=== PATIENT | male | born 1945 | race Caucasian/White ===

== ENCOUNTER 2019-04-27 12:42 | Outpatient (CLI) | payer BC, MEDICARE ==
[2019-04-27 13:42] LABS: HGB - HEMOGLOBIN 13.8 g/dL (14.0-18.0); MEAN CORPUSCULAR HEMOGLOBIN 29.7 pg (27.0-31.0); MEAN CORPUSCULAR HGB CONC 32.6 g/dL (32.0-36.0); MEAN CORPUSCULAR VOLUME 91.2 fL (80.0-94.0); MEAN PLATELET VOLUME 9.3 fL (7.4-11.4); RED BLOOD COUNT 4.64 10^6/uL (4.70-6.10); RED CELL DISTRIBUTION WIDTH 12.5 % (12.0-15.0)
[2019-04-27 14:02] LABS: CALCIUM 8.9 mg/dL (8.5-10.3)
== END 2019-04-27 12:43 | disposition home or self-care (01) ==
LOC: LAB 12:42
PROVIDERS: ATTEND Urology
DX: Z01.818 Encounter for other preprocedural examination (principal)
CPT/HCPCS: 36415; 80048; 85027; 93005

== ENCOUNTER 2019-06-15 13:13 | Outpatient (CLI) | payer BC, MEDICARE ==
[2019-06-15 14:16] LABS: PSA TOTAL 6.03 ng/mL (0.000-2.000)
== END 2019-06-15 13:14 | disposition home or self-care (01) ==
LOC: LAB 13:13
PROVIDERS: ATTEND Urology
DX: C61 Malignant neoplasm of prostate (principal)
CPT/HCPCS: 36415; 84153; 84403

== ENCOUNTER 2019-07-19 10:03 | Day surgery (SDC) | payer BC, MEDICARE ==
--- NOTE | 2019-07-19 10:32 | ED Physician Documentation ---
PD HPI ABD PAIN - Stated complaint Stated Complaint: ABD PX - Chief complaint Chief Complaint: Abd Pain - History obtained from History obtained from: Patient - History of Present Illness Timing - onset: How many days ago (3) Timing - duration: Days (3) Timing - details: Gradual onset, Still present (He states he has a history of diverticulitis 3 or 4 times in the past treated with antibiotics. He had not had prior surgery. He had onset of mid to left lower abdominal pain similar to prior diverticulitis 3 days ago and it has increased since then. He states is gotten worse than the other episodes he has had. He denies any nausea vomiting or diarrhea. He is not had any fevers. He was seen 2 months ago with laparoscopic surgery and prostatectomy and lymph node dissection for prostate cancer. This has been well healing without any infection or problems. He did get a Lupron shots. Otherwise no current chemotherapy. He is to get radiation therapy in the near future.) Quality: Cramping, Aching, Pain Review of Systems Constitutional: reports: Fatigue. denies: Fever, Chills, Myalgias Nose: denies: Rhinorrhea / runny nose, Congestion Throat: denies: Sore throat Respiratory: denies: Cough GI: reports: Abdominal Pain. denies: Vomiting, Diarrhea, Bloody / black stool : denies: Dysuria, Frequency PD PAST MEDICAL HISTORY - Past Medical History Cardiovascular: High cholesterol : Other (prostate cancer with spread to lymph nodes. ) Psych: Depression - Past Surgical History Past Surgical History: No - Present Medications Home Medications: Ambulatory Orders Medication Instructions Recorded Confirmed Atorvastatin Calcium [Lipitor] 20 mg PO DAILY 01/30/14 07/19/19 Citalopram [CeleXA] 10 mg PO ONCE 07/19/19 07/19/19 Levofloxacin [Levaquin] 500 mg PO DAILY #10 tablet 07/19/19 Melatonin 10 mg PO DAILY PM 07/19/19 07/19/19 Ondansetron Odt [Zofran] 4 mg TL Q6H PRN #10 tablet 07/19/19 diphenhydrAMINE [Benadryl] 25 mg PO ONCE 07/19/19 07/19/19 oxyCODONE [Roxicodone] 5 mg PO Q4HR PRN #20 tablet 07/19/19 - Allergies Allergies/Adverse Reactions: Allergies Allergy/AdvReac Type Severity Reaction Status Date / Time No Known Drug Allergies Allergy Verified 07/19/19 14:17 - Social History Does the pt smoke?: No Smoking Status: Never smoker Does the pt drink ETOH?: No PD ED PE NORMAL - Vitals Vital signs reviewed: Yes - General General: Alert and oriented X 3, No acute distress, Well developed/nourished - HEENT HEENT: Moist mucous membranes, Pharynx benign - Neck Neck: Supple, no meningeal sign, No adenopathy - Cardiac Cardiac: RRR, No murmur - Respiratory Respiratory: Clear bilaterally - Abdomen Abdomen: Normal bowel sounds, Soft, Non distended, No organomegaly, Other ([place] with some local guarding in the left lower quadrant and left periumbilical area. There is no tenderness to the right to the umbilicus nor the right lower quadrant. There is no percussion or rebound tenderness. Bowel sounds are present and slightly hypoactive. Prior laparoscopic scars are healing without any signs of infection.) - Back Back: No CVA TTP - Derm Derm: Normal color, Warm and dry - Neuro Neuro: Alert and oriented X 3, No motor deficit, Normal speech Results - Vitals Vitals: Vital Signs - 24 hr 07/19/19 07/19/19 07/19/19 10:08 12:04 13:54 Temperature 36.8 C 37.0 C Heart Rate 64 63 64 Respiratory 18 15 16 Rate Blood Pressure 178/79 H 165/80 H 178/102 H O2 Saturation 98 97 97 07/19/19 07/19/19 07/19/19 15:55 16:00 16:05 Temperature 36.2 C L 36.4 C L 36.4 C L Heart Rate 75 80 78 Respiratory 14 16 16 Rate Blood Pressure 155/81 H 132/78 H 133/78 H O2 Saturation 77 L 98 98 07/19/19 07/19/19 07/19/19 16:10 16:15 16:19 Temperature 36.4 C L 36.4 C L Heart Rate 83 83 84 Respiratory 16 16 16 Rate Blood Pressure 130/81 H 132/78 H 131/80 H O2 Saturation 98 99 97 07/19/19 07/19/19 07/19/19 16:21 16:54 17:25 Temperature 36.4 C L 36.5 C 36.6 C Heart Rate 79 81 62 Respiratory 14 16 16 Rate Blood Pressure 132/84 H 139/78 H 132/86 H O2 Saturation 99 97 96 Oxygen O2 Source Room air - Labs Labs: Laboratory Tests 07/19/19 07/19/19 07/19/19 10:40 10:40 10:40 WBC 5.4 RBC 4.94 Hgb 14.4 Hct 43.9 MCV 88.9 MCH 29.1 MCHC 32.8 RDW 12.6 Plt Count 216 MPV 8.9 Neut # (Auto) 3.7 Lymph # (Auto) 0.8 L [place] # (Auto) 0.5 Eos # (Auto) 0.3 Baso # (Auto) 0.0 Absolute Nucleated RBC 0.00 Nucleated RBC % 0.0 Sodium 139 Potassium 4.0 Chloride 103 Carbon Dioxide 27 Anion Gap 9.0 BUN 17 Creatinine 1.0 Estimated GFR (MDRD) 73 L Glucose 161 H Calcium 8.8 Magnesium 1.9 Total Bilirubin 0.7 AST 21 ALT 30 Alkaline Phosphatase 70 Total Protein 7.5 Albumin 3.8 Globulin 3.7 Albumin/Globulin Ratio 1.0 Lipase 64 H Urine Color Urine Clarity Urine pH Ur Specific [place] Urine Protein Urine Glucose (UA) Urine Ketones Urine Occult Blood Urine Nitrite Urine Bilirubin Urine Urobilinogen Ur Leukocyte Esterase Ur Microscopic Review Urine Culture Comments 07/19/19 11:52 WBC RBC Hgb Hct MCV MCH MCHC RDW Plt Count MPV Neut # (Auto) Lymph # (Auto) [place] # (Auto) Eos # (Auto) Baso # (Auto) Absolute Nucleated RBC Nucleated RBC % Sodium Potassium Chloride Carbon Dioxide Anion Gap BUN Creatinine Estimated GFR (MDRD) Glucose Calcium Magnesium Total Bilirubin AST ALT Alkaline Phosphatase Total Protein Albumin Globulin Albumin/Globulin Ratio Lipase Urine Color YELLOW Urine Clarity CLEAR Urine pH 8.0 H Ur Specific [place] 1.010 Urine Protein NEGATIVE Urine Glucose (UA) NEGATIVE Urine Ketones NEGATIVE Urine Occult Blood NEGATIVE Urine Nitrite NEGATIVE Urine Bilirubin NEGATIVE Urine Urobilinogen 0.2 (NORMAL) Ur Leukocyte Esterase NEGATIVE Ur Microscopic Review NOT INDICATED Urine Culture Comments NOT INDICATED - Rads (name of study) abd CT Radiology: Prelim report reviewed, Discussed with rads (Diverticula are seen in the descending colon but no areas of diverticulitis. There is inflammation of the appendix at 1.7 cm with surrounding fat stranding concerning for acute appendicitis.), See rad report PD MEDICAL DECISION MAKING - ED course Complexity details: reviewed results (CT shows no diverticulitis but there is acute appendicitis per radiology.), re-evaluated patient, considered differential (Symptoms consistent with prior diverticulitis. However it is worse than other episodes he has had. Will get CT scan to confirm the diagnosis and evaluate for complications such as perforation or abscess.), d/w patient, d/w business solutions consultant ([place], surgery) Departure - Departure Disposition: ED Transfer to [facility] Clinical Impression: Acute appendicitis Qualifiers: Acute appendicitis type: with localized peritonitis Appendicitis gangrene presence: without gangrene Appendicitis perforation presence: without perforation Appendicitis abscess presence: without abscess Qualified Code(s): K35.30 - Acute appendicitis with localized peritonitis, without perforation or gangrene Abdominal pain Qualifiers: Abdominal location: left lower quadrant Qualified Code(s): R10.32 - Left lower quadrant pain Discharge Date/Time: 07/19/19 13:28
[2019-07-19 10:46] LABS: BASOPHILS % (AUTO) 0.6 %; EOSINOPHILS # (AUTO) 0.3 10^3/uL (0.0-0.7); EOSINOPHILS % (AUTO) 5.5 %; HGB - HEMOGLOBIN 14.4 g/dL (14.0-18.0); LYMPHOCYTES # (AUTO) 0.8 10^3/uL (1.5-3.5); LYMPHOCYTES % (AUTO) 15.3 %; MEAN CORPUSCULAR HEMOGLOBIN 29.1 pg (27.0-31.0); MEAN CORPUSCULAR HGB CONC 32.8 g/dL (32.0-36.0); MEAN CORPUSCULAR VOLUME 88.9 fL (80.0-94.0); MEAN PLATELET VOLUME 8.9 fL (7.4-11.4); MONOCYTES # (AUTO) 0.5 10^3/uL (0.0-1.0); MONOCYTES % (AUTO) 9.4 %; NEUTROPHILS # (AUTO) 3.7 10^3/uL (1.5-6.6); NEUTROPHILS % (AUTO) 68.6 %; PLT - PLATELET COUNT 216 10^3/uL (130-450); RED BLOOD COUNT 4.94 10^6/uL (4.70-6.10); RED CELL DISTRIBUTION WIDTH 12.6 % (12.0-15.0); WHITE BLOOD COUNT 5.4 x10^3/uL (4.8-10.8)
[2019-07-19 11:01] LABS: ALBUMIN 3.8 g/dL (3.2-5.5); BILIRUBIN,TOTAL 0.7 mg/dL (0.2-1.0); CALCIUM 8.8 mg/dL (8.5-10.3); TOTAL PROTEIN 7.5 g/dL (6.7-8.2)
[2019-07-19] MEDS ORDERED: HYDROmorphone 1 MG/ML CARPUJECT IVP STA (11:03)
[2019-07-19] MEDS ORDERED: SODIUM CHLORIDE 0.9% 1,000 ML IV ONE (11:03)
[2019-07-19] MEDS ORDERED: KETOROLAC 15 MG/ML VIAL IVP STA (11:03)
[2019-07-19] MEDS ORDERED: ONDANSETRON 4 MG/2 ML VIAL IVP STA (11:03)
[2019-07-19] MEDS ORDERED: cefTRIAXone 1 GM VIAL IVP STA (11:03)
[2019-07-19] MEDS ORDERED: IOVERSOL 320 100 ML VIAL IVP ONE ×2 (11:06→15:17)
--- NOTE | 2019-07-19 11:59 | CT Report ---
Reason: LLQ abd pain 2 days; h/o diverticulitis Procedure Date: 07/19/2019 Accession Number: [id number] / [id number] Procedure: CT - Abdomen/Pelvis W CPT Code: Final Report FULL RESULT: EXAM: CT ABDOMEN AND PELVIS EXAM DATE: 07/19/2019 11:26 AM. CLINICAL HISTORY: LLQ abdominal pain 2 days; history of diverticulitis. COMPARISONS: None. TECHNIQUE: Routine helical CT imaging was performed through the abdomen and pelvis. IV contrast: OPTI 320 100 mL. Enteric contrast: No. Reconstructions: Coronal and sagittal. In accordance with CT protocol optimization, one or more of the following dose reduction techniques were utilized for this exam: automated exposure control, adjustment of mA and/or KV based on patient size, or use of iterative reconstructive technique. FINDINGS: Lung Bases: Unremarkable. Liver: Normal. No masses. Gallbladder/Bile Ducts: Unremarkable. Spleen: Normal. Pancreas: Normal. Adrenal Glands: Normal. Kidneys: Nonobstructing 4 mm right superior pole calculus is noted. Subcentimeter left renal hypodensity too small to characterize is also identified. No hydronephrosis. Peritoneal Cavity/Bowel: A blind-ending tubular structure extending from the cecal region demonstrates a maximal caliber of 1.7 cm with surrounding focal fat stranding, concerning for acute appendicitis or stump appendicitis. The ileocecal valve is no longer clearly delineated which is felt to be due to pericecal inflammation as the terminal ileum is seen just cranially to the blind-ending tubular structure. Expected stool burden is seen in the ascending and transverse colon with the distal descending and sigmoid colon essentially devoid of content. There is diverticulosis throughout the descending colon and sigmoid colon with short segmental thickening of the distal sigmoid colon without fluid collection or focally inflamed diverticulum identified. No free air, free fluid. Pelvic Organs: The patient is status post prostatectomy. Prominent lymph nodes are noted including a 1.4 cm right common iliac node which is potentially pathologic, image 36 series 5 and image 62 series 3. Fluid collections in the pelvis adjacent to the iliac vasculature demonstrate typical appearance of postsurgical seroma without enhancing wall with surrounding inflammatory changes and triangular margins along fascial planes. Vasculature: Ectatic iliac vasculature in the setting of mild to moderate atherosclerotic disease. Bones: No aggressive osseous lesion is detected. Other: None. IMPRESSION: Acute appendicitis without evidence of nearby abscess or perforation. Prominent lymph nodes including a right pelvic lymph node with apparent loss of architecture in the setting of prior prostatectomy. RADIA The call report notification system was initiated by Dr. Sebastien Martinez at 11:53 AM on 07/19/2019. The above call report findings were discussed with Michael Silverio by Dr. Sebastien Martinez at 11:58 AM on 07/19/2019.
[2019-07-19 12:03] LABS: BILIRUBIN,URINE NEGATIVE (NEGATIVE); GLUCOSE, URINE (UA) NEGATIVE (NEGATIVE); KETONES,URINE (UA) NEGATIVE (NEGATIVE); LEUKOCYTE ESTERASE, URINE NEGATIVE (NEGATIVE); NITRITE,URINE NEGATIVE (NEGATIVE); OCCULT BLOOD,URINE NEGATIVE (NEGATIVE); PROTEIN,URINE NEGATIVE (NEGATIVE); UROBILINOGEN,URINE 0.2 (NORMAL) E.U./dL (NORMAL)
[2019-07-19 12:04] LABS: CLARITY,URINE CLEAR (CLEAR)
[2019-07-19] MEDS ORDERED: PROPOFOL 200 MG/20 ML VIAL IVP ONE (13:09)
[2019-07-19] MEDS ORDERED: ROCURONIUM 50 MG/5 ML VIAL IVP ONE (13:09)
[2019-07-19] MEDS ORDERED: GLYCOPYRROLATE 1 MG/5 ML VIAL IVP ONE (13:09)
[2019-07-19] MEDS ORDERED: fentaNYL 100 MCG/2 ML VIAL IVP ONE (13:09)
[2019-07-19] MEDS ORDERED: LACTATED RINGERS 1,000 ML IV ONE ×2 (13:54→16:05)
--- NOTE | 2019-07-19 14:17 | ANESTHESIA ---
Pre-Anesthesia VS, & Labs - Diagnosis acute apendicitis - Procedure Lap appy Vital Signs: Temp Pulse Resp BP Pulse Ox 37.0 C 64 16 178/102 H 97 07/19/19 13:54 07/19/19 13:54 07/19/19 13:54 07/19/19 13:54 07/19/19 13:54 Height 5 ft 9 in Weight (kg) 220 kg Body Mass Index 32.5 - Lab Results Current Lab Results: Laboratory Tests 07/19/19 10:40: Magnesium 1.9 07/19/19 10:40: Sodium 139, Potassium 4.0, Chloride 103, Carbon Dioxide 27, Anion Gap 9.0, BUN 17, Creatinine 1.0, Estimated GFR (MDRD) 73 L, Glucose 161 H, Calcium 8.8, Total Bilirubin 0.7, AST 21, ALT 30, Alkaline Phosphatase 70, Total Protein 7.5, Albumin 3.8, Globulin 3.7, Albumin/Globulin Ratio 1.0, Lipase 64 H 07/19/19 10:40: WBC 5.4, RBC 4.94, Hgb 14.4, Hct 43.9, MCV 88.9, MCH 29.1, MCHC 32.8, RDW 12.6, Plt Count 216, MPV 8.9, Neut # (Auto) 3.7, Lymph # (Auto) 0.8 L, [place] # (Auto) 0.5, Eos # (Auto) 0.3, Baso # (Auto) 0.0, Absolute Nucleated RBC 0.00, Nucleated RBC % 0.0 Fish Bones: 07/19/19 10:40 07/19/19 10:40 Home Medications and Allergies Antidepressant 01/30/14 Atorvastatin Calcium [Lipitor] 20 mg PO DAILY 01/30/14 Cyclobenzaprine [Flexeril] 0 PRN 01/30/14 Allergies/Adverse Reactions: Allergies Allergy/AdvReac Type Severity Reaction Status Date / Time No Known Drug Allergies Allergy Verified 07/19/19 14:17 Anes History & Medical History - Anesthetic History Anesthesia Complications: reports: No previous complications Family history of Anesthesia Complications: Denies Family history of Malignant Hyperthermia: Denies - Medical History Cardiovascular: reports: High cholesterol, Other (denies HTN) Pulmonary: reports: Sleep apnea Gastrointestinal: reports: Diverticulitis, Other Urinary: reports: Incontinence, Nocturia, Other Neuro: reports: None Musculoskeletal: reports: None Endocrine/Autoimmune: reports: None, Other Blood Disorders: reports: None Skin: reports: None Smoking Status: Never smoker Psychosocial: reports: No issues indicated - Surgical History Urologic: Prostatic surgery (in may 2019) Exam General: Alert, Oriented x3, Cooperative, No acute distress Dental: WNL Mouth Openin Fingerbreadth Neck Mobility: Normal Mallampati classification: I Thyromental Distance: 4-6 cm Respiratory: Lungs clear, Normal breath sounds, No respiratory distress, No accessory muscle use Cardiovascular: Regular rate, Normal S1, Normal S2, No murmurs Abdomen: Normal bowel sounds, Soft, No tenderness, No hepatospenomegaly, No masses Extremities: No clubbing, No cyanosis, No edema, Normal pulses, No tenderness/swelling Neurological: Normal gait, Normal speech, Strength at 5/5 X4 ext, Normal tone, Sensation intact, Cranial nerves 3-12 NL, Reflexes 2+ Mental/Cognitive Status: Alert/Oriented X3, Normal for patient Cognitive Status: Within normal limits Plan Anesthesia Type: General Consent for Procedure(s) Verified and Reviewed: Yes Code Status: Attempt Resuscitation ASA classification: 2-Mild systemic disease Is this case an emergency?: No
[2019-07-19] MEDS ORDERED: BUPIVACAINE 0.5% PF 30 ML VIAL ONE (14:18)
[2019-07-19] MEDS ORDERED: LIDOCAINE MPF 1%-EPI 1:200000 30 ML VIAL ONE (14:18)
--- NOTE | 2019-07-19 14:41 | HISTORY & PHYSICAL EXAMINATION ---
HPI - Admitted From Admitted from: ED - History Obtained From Records Reviewed: Old records reviewed History obtained from: Patient, Family - History of Present Illness Severity at the worst: reports: Moderate Pain Quality: reports: Sharp, Aching, Throbbing Context-Pain started w/: reports: Rest Timing: reports: Gradual onset Improved with: reports: Rest Worsened by: reports: Exertion, Inspiration, Movement, Palpation Associated symptoms: reports: Other (recent Lupron shot) PMH/PSH - Past Medical History Cardiovascular: positive: High cholesterol, Other (denies HTN) Respiratory: positive: Sleep apnea Neuro: positive: None Endocrine/Autoimmune: positive: None, Other GI: positive: Diverticulitis, Other : positive: Incontinence, Nocturia, Other HEENT: positive: Chronic vision loss Psych: positive: Depression, Anxiety Musculoskeletal: positive: None Derm: positive: None MRSA Hx?: No Social & Family Hx - Social History Does the pt smoke?: No Smoking Status: Never smoker Does the pt drink ETOH?: No Substance Use and Type: Marijuana Meds/Allgy - Home Medications Home Medications: Ambulatory Orders Medication Instructions Recorded Confirmed Atorvastatin Calcium [Lipitor] 20 mg PO DAILY 01/30/14 07/19/19 Citalopram [CeleXA] 10 mg PO ONCE 07/19/19 07/19/19 Melatonin 10 mg PO DAILY PM 07/19/19 07/19/19 diphenhydrAMINE [Benadryl] 25 mg PO ONCE 07/19/19 07/19/19 - Allergies Allergies/Adverse Reactions: Allergies Allergy/AdvReac Type Severity Reaction Status Date / Time No Known Drug Allergies Allergy Verified 07/19/19 14:17 Review of Systems - Constitutional Constitutional: reports: Fatigue, Malaise, Weakness, Poor appetite. denies: Fever, Chills - Eyes Eyes: denies: Pain, Blurred vision - Ears, Nose & Throat Ears, Nose & Throat: denies: Tinnitus, Vertigo - Cardiovascular Cariovascular: denies: Irregular heart rate, Palpitations, Chest pain - Respiratory Respiratory: denies: Cough, Wheezing - Gastrointestinal Gastrointestinal: reports: Abdominal pain, Nausea, Poor appetite. denies: Abdom inal distention, Constipation, Diarrhea, Change in bowel habits, Vomiting - Genitourinary Genitourinary: denies: Dysuria, Frequency - Musculoskeletal Musculoskeletal: reports: Muscle pain, Back pain, Muscle aches - Integumentary Integumentary: denies: Rash - Neurological Neurological: denies: General weakness, Focal weakness - Psychiatric Psychiatric: denies: Depression - Endocrine Endocrine: denies: Polyuria, Polydypsia - Hematologic/Lymphatic Hematologic/Lymphatic: denies: Anemia, Bruising - All Other Systems All Other Systems: reports: Reviewed and negative Exam - Vital Signs Reviewed Vital Signs: Yes Vital Signs: Vital Signs x48h Temp Pulse Resp BP Pulse Ox 07/19/19 13:54 37.0 C 64 16 178/102 H 97 07/19/19 12:04 63 15 165/80 H 97 07/19/19 10:08 36.8 C 64 18 178/79 H 98 - Physical Exam General Appearance: positive: No acute distress, Alert Eyes Bilateral: positive: Normal inspection, PERRL, EOMI ENT: positive: ENT inspection nml, Pharynx nml, No signs of dehydration Neck: positive: Nml inspection, Thyroid nml, No JVD, Trachea midline. negative: Thyromegaly Respiratory: positive: Chest non-tender, No respiratory distress, Breath sounds nml Cardiovascular: positive: Regular rate & rhythm, No murmur, No gallop, Irregularly irregular Peripheral Pulses: positive: 0 Abdomen: positive: Nml bowel sounds, No distention, Tenderness (left mid abdomen tenderness to palpation without rebound or guarding. No right lower quadrant tenderness). negative: Guarding, Rebound Back: positive: Nml inspection. negative: CVA tenderness (R), CVA tenderness (L) Skin: positive: Color nml, No rash, Warm, Dry Extremities: positive: Non-tender, Nml appearance Neurologic/Psychiatric: positive: Oriented x3, CN's nml (2-12) Results - Lab Results Fish Bones: 07/19/19 10:40 07/19/19 10:40 Other Lab Results: Lab Results x24hrs 07/19/19 07/19/19 07/19/19 Range/Units 11:52 10:40 10:40 WBC (4.8-10.8) x10^3/uL RBC (4.70-6.10) 10^6/uL Hgb (14.0-18.0) g/dL Hct (42.0-52.0) % MCV (80.0-94.0) fL MCH (27.0-31.0) pg MCHC (32.0-36.0) g/dL RDW (12.0-15.0) % Plt Count (130-450) 10^3/uL MPV (7.4-11.4) fL Neut # (Auto) (1.5-6.6) 10^3/uL Lymph # (Auto) (1.5-3.5) 10^3/uL [place] # (Auto) (0.0-1.0) 10^3/uL Eos # (Auto) (0.0-0.7) 10^3/uL Baso # (Auto) (0.0-0.1) 10^3/uL Absolute Nucleated RBC x10^3/uL Nucleated RBC % /100WBC Sodium 139 (135-145) mmol/L Potassium 4.0 (3.5-5.0) mmol/L Chloride 103 (101-111) mmol/L Carbon Dioxide 27 (21-32) mmol/L Anion Gap 9.0 (6-13) BUN 17 (6-20) mg/dL Creatinine 1.0 (0.6-1.2) mg/dL Estimated GFR (MDRD) 73 L (>89) Glucose 161 H (70-100) mg/dL Calcium 8.8 (8.5-10.3) mg/dL Magnesium 1.9 (1.7-2.8) mg/dL Total Bilirubin 0.7 (0.2-1.0) mg/dL AST 21 (10-42) IU/L ALT 30 (10-60) IU/L Alkaline Phosphatase 70 (42-121) IU/L Total Protein 7.5 (6.7-8.2) g/dL Albumin 3.8 (3.2-5.5) g/dL Globulin 3.7 (2.1-4.2) g/dL Albumin/Globulin Ratio 1.0 (1.0-2.2) Lipase 64 H (22-51) U/L Urine Color YELLOW Urine Clarity CLEAR (CLEAR) Urine pH 8.0 H (5.0-7.5) PH Ur Specific [place] 1.010 (1.002-1.030) Urine Protein NEGATIVE (NEGATIVE) mg/dL Urine Glucose (UA) NEGATIVE (NEGATIVE) mg/dL Urine Ketones NEGATIVE (NEGATIVE) mg/dL Urine Occult Blood NEGATIVE (NEGATIVE) Urine Nitrite NEGATIVE (NEGATIVE) Urine Bilirubin NEGATIVE (NEGATIVE) Urine Urobilinogen 0.2 (NORMAL) (NORMAL) E.U./dL Ur Leukocyte Esterase NEGATIVE (NEGATIVE) Ur Microscopic Review NOT INDICATED Urine Culture Comments NOT INDICATED 07/19/19 Range/Units 10:40 WBC 5.4 (4.8-10.8) x10^3/uL RBC 4.94 (4.70-6.10) 10^6/uL Hgb 14.4 (14.0-18.0) g/dL Hct 43.9 (42.0-52.0) % MCV 88.9 (80.0-94.0) fL MCH 29.1 (27.0-31.0) pg MCHC 32.8 (32.0-36.0) g/dL RDW 12.6 (12.0-15.0) % Plt Count 216 (130-450) 10^3/uL MPV 8.9 (7.4-11.4) fL Neut # (Auto) 3.7 (1.5-6.6) 10^3/uL Lymph # (Auto) 0.8 L (1.5-3.5) 10^3/uL [place] # (Auto) 0.5 (0.0-1.0) 10^3/uL Eos # (Auto) 0.3 (0.0-0.7) 10^3/uL Baso # (Auto) 0.0 (0.0-0.1) 10^3/uL Absolute Nucleated RBC 0.00 x10^3/uL Nucleated RBC % 0.0 /100WBC Sodium (135-145) mmol/L Potassium (3.5-5.0) mmol/L Chloride (101-111) mmol/L Carbon Dioxide (21-32) mmol/L Anion Gap (6-13) BUN (6-20) mg/dL Creatinine (0.6-1.2) mg/dL Estimated GFR (MDRD) (>89) Glucose (70-100) mg/dL Calcium (8.5-10.3) mg/dL Magnesium (1.7-2.8) mg/dL Total Bilirubin (0.2-1.0) mg/dL AST (10-42) IU/L ALT (10-60) IU/L Alkaline Phosphatase (42-121) IU/L Total Protein (6.7-8.2) g/dL Albumin (3.2-5.5) g/dL Globulin (2.1-4.2) g/dL Albumin/Globulin Ratio (1.0-2.2) Lipase (22-51) U/L Urine Color Urine Clarity (CLEAR) Urine pH (5.0-7.5) PH Ur Specific [place] (1.002-1.030) Urine Protein (NEGATIVE) mg/dL Urine Glucose (UA) (NEGATIVE) mg/dL Urine Ketones (NEGATIVE) mg/dL Urine Occult Blood (NEGATIVE) Urine Nitrite (NEGATIVE) Urine Bilirubin (NEGATIVE) Urine Urobilinogen (NORMAL) E.U./dL Ur Leukocyte Esterase (NEGATIVE) Ur Microscopic Review Urine Culture Comments - Diagnostic Imaging Results Diagnostic Imaging Results: positive: Final report reviewed Diagnostic Imaging Results Comments: Final Report PT NAME: FELIPE MONTERO MR#: [id number] REG ER/ED AGE: 73 CI DT/TM: 07/19/19 PCP: Adela Soto MD : 1945 ATT: SEX: M ORD: Michael Silverio MD EXAM: [id number] CT/ABPEW ([id number]) Reason: LLQ abd pain 2 days; h/o diverticulitis Procedure Date: 07/19/2019 Accession Number: [id number] / [id number] Procedure: CT - Abdomen/Pelvis W CPT Code: Final Report FULL RESULT: EXAM: CT ABDOMEN AND PELVIS EXAM DATE: 07/19/2019 11:26 AM. CLINICAL HISTORY: LLQ abdominal pain 2 days; history of diverticulitis. COMPARISONS: None. TECHNIQUE: Routine helical CT imaging was performed through the abdomen and pelvis. IV contrast: OPTI 320 100 mL. Enteric contrast: No. Reconstructions: Coronal and sagittal. In accordance with CT protocol optimization, one or more of the following dose reduction techniques were utilized for this exam: automated exposure control, adjustment of mA and/or KV based on patient size, or use of iterative reconstructive technique. FINDINGS: Lung Bases: Unremarkable. Liver: Normal. No masses. Gallbladder/Bile Ducts: Unremarkable. Spleen: Normal. Pancreas: Normal. Adrenal Glands: Normal. Kidneys: Nonobstructing 4 mm right superior pole calculus is noted. Subcentimeter left renal hypodensity too small to characterize is also identified. No hydronephrosis. Peritoneal Cavity/Bowel: A blind-ending tubular structure extending from the cecal region demonstrates a maximal caliber of 1.7 cm with surrounding focal fat stranding, concerning for acute appendicitis or stump appendicitis. The ileocecal valve is no longer clearly delineated which is felt to be due to pericecal inflammation as the terminal ileum is seen just cranially to the blind-ending tubular structure. Expected stool burden is seen in the ascending and transverse colon with the distal descending and sigmoid colon essentially devoid of content. There is diverticulosis throughout the descending colon and sigmoid colon with short segmental thickening of the distal sigmoid colon without fluid collection or focally inflamed diverticulum identified. No free air, free fluid. Pelvic Organs: The patient is status post prostatectomy. Prominent lymph nodes are noted including a 1.4 cm right common iliac node which is potentially pathologic, image 36 series 5 and image 62 series 3. Fluid collections in the pelvis adjacent to the iliac vasculature demonstrate typical appearance of postsurgical seroma without enhancing wall with surrounding inflammatory changes and triangular margins along fascial planes. Vasculature: Ectatic iliac vasculature in the setting of mild to moderate atherosclerotic disease. Bones: No aggressive osseous lesion is detected. Other: None. IMPRESSION: Acute appendicitis without evidence of nearby abscess or perforation. Prominent lymph nodes including a right pelvic lymph node with apparent loss of architecture in the setting of prior prostatectomy. RADIA The call report notification system was initiated by Dr. Sebastien Martinez at 11:53 AM on 07/19/2019. The above call report findings were discussed with Michael Silverio by Dr. Sebastien Martinez at 11:58 AM on 07/19/2019. [employer]ics Shop Supervisor: Reading Radiologist: Sebastien Martinez MD Releasing Radiologist: Sebastien Martinez MD Released Date Time: 07/19/191207 Report [id number] cc: Michael Silverio MD; Adela Soto MD Impression/Plan - Problem List Problem List: Acute appendicitis demonstrated on CT with an unusual clinical presentation. We have discussed the risks and benefits of Laparoscopy with appendectomy. The patient understands he will have a higher than normal risk for conversion to an open procedure since he has just recently had a radical prostatectomy. Considering all of these things, he has elected to complete the operation today.
[2019-07-19] MEDS ORDERED: LIDOCAINE 1%-EPI 1:100000 30 ML MDV SUBQ ONE ×2 (15:11)
[2019-07-19] MEDS ORDERED: BUPIVACAINE 0.5% PF 30 ML VIAL SUBQ ONE ×2 (15:12)
[2019-07-19] MEDS ORDERED: IBUPROFEN 600 MG TABLET PO PRN (15:46)
[2019-07-19] MEDS ORDERED: oxyCODONE 5 MG TABLET PO PRN (15:46)
[2019-07-19] MEDS ORDERED: ACETAMINOPHEN 325 MG TABLET PO PRN (15:46)
[2019-07-19] MEDS ORDERED: ONDANSETRON 4 MG/2 ML VIAL IVP PRN (15:46)
--- NOTE | 2019-07-19 17:35 | OPERATIVE REPORT ---
Operative Report - General Procedure Date: 07/19/19 Planned Procedure: Laparoscopic appendectomy Pre-Op Diagnosis: Acute appendicitis Procedure Performed: Laparoscopic appendectomy Post Op Diagnosis: Normal-appearing appendix - Procedure Note Primary Surgeon: Odalys Anesthesia Provider: HOWIE Baum Anesthesia Technique: General LMA Pathology: Appendix to pathology in formalin Estimated Blood Loss (mL): 5 Indications: After obtaining informed consent, the patient is brought to the operating room and placed in the supine position on the operating table. Following successful induction of general endotracheal anesthesia, appropriate padding of all bony prominences, and placement of appropriate monitors, the abdomen was prepped and draped in the standard surgical fashion. A timeout was held per scope protocol. All elements of the surgical safety checklist were followed before, during, and after the procedure. Following infiltration with local anesthetic to create a field block, an incision was created inferior to the umbilicus and carried down through the skin and subcutaneous tissue to reveal the fascia below.2-0 Vicryl retention sutures were placed on either side of the midline and the vision using a 15 blade scalpel. A 12 mm blunt Flores balloon trocar was placed in the abdominal cavity and it was insufflated to 15 mmHg pressure. The patient was placed in Trendelenburg position with the left side rotated toward the floor. We measured immediately visualized the right lower quadrant but could not clearly see the appendix. We could see a significant amount of inflammation in the right lower quadrant involving the pelvis and what appeared to be postoperative change. This also affected the left lower quadrant to a nearly equal degree. A second 5 mm trocar was placed in the right upper quadrant using an existing incision from the patient's recent prostatectomy and a third 5 mm trocar was placed midway between the umbilicus and the pubis under direct vision. The right colon was followed to its in and the appendix identified. The appendix itself was quite small and long. The tip of the appendix was adherent to the right lateral abdominal wall and involved in adhesion from what appeared to be 1 of the patient's prior port sites. The appendix was carefully dissected free from surrounding structures. It was liberated from its attachment to the cecum using a LOGAN stapling device. 2 additional loads of the stapler were used to liberate the mesoappendix. It was pulled through the umbilical port and delivered into the field. The abdomen was then checked for hemostasis. It was irrigated with 1 L of warm saline solution and aspirated free of all fluid and particulate matter. Once we were satisfied that hemostasis was adequate, the trochars were removed under direct vision and the abdomen was desufflated. The umbilical incision was closed with interrupted Vicryl suture and 4 Monocryl stitches were placed in the skin. The wounds were dressed with Dermabond. All sponge, needle, and instrument counts were correct at the conclusion of the case. The patient was allowed to awaken from anesthesia without difficulty and taken to the postanesthesia care unit in good condition.
[2019-07-19 17:41] VITALS: BP 132/86
== END 2019-07-19 13:09 | disposition home or self-care (01) ==
LOC: ED 10:03 → SDS 13:08
PROVIDERS: ATTEND Surgery
PROC: 0DTJ4ZZ Resection of Appendix, Percutaneous Endoscopic Approach (ICD-10-PCS; principal; 2019-07-19 15:30)
DX: K38.8 Other specified diseases of appendix (principal); R10.32 Left lower quadrant pain; K57.30 Diverticulosis of large intestine without perforation or abscess without bleeding; C61 Malignant neoplasm of prostate; C77.9 Secondary and unspecified malignant neoplasm of lymph node, unspecified; G47.30 Sleep apnea, unspecified; Z79.818 Long term (current) use of other agents affecting estrogen receptors and estrogen levels; Z90.79 Acquired absence of other genital organ(s); Z79.899 Other long term (current) drug therapy
CPT/HCPCS: 36415; 44970; 74177; 80053; 81003; 83690; 83735; 85025; 96361; 96374; 99284; 99285; J1170; J7120; Q9967; 81001; 87086

== ENCOUNTER 2019-09-15 14:12 | Outpatient (CLI) | payer MEDICARE ==
[2019-09-15 15:33] LABS: PSA TOTAL 0.087 ng/mL (0.000-2.000)
== END 2019-09-15 14:13 | disposition home or self-care (01) ==
LOC: LAB 14:12
PROVIDERS: ATTEND Urology
DX: C61 Malignant neoplasm of prostate (principal)
CPT/HCPCS: 36415; 84153; 84403

== ENCOUNTER 2021-04-25 22:07 | Emergency (ER) | payer BC, MEDICARE ==
[2021-04-25 22:36] LABS: BASOPHILS % (AUTO) 0.5 %; EOSINOPHILS # (AUTO) 0.4 10^3/uL (0.0-0.7); EOSINOPHILS % (AUTO) 4.9 %; HCT - HEMATOCRIT 40.3 % (42.0-52.0); HGB - HEMOGLOBIN 13.5 g/dL (14.0-18.0); LYMPHOCYTES # (AUTO) 0.9 10^3/uL (1.5-3.5); LYMPHOCYTES % (AUTO) 10.9 %; MEAN CORPUSCULAR HEMOGLOBIN 30.8 pg (27.0-31.0); MEAN CORPUSCULAR HGB CONC 33.5 g/dL (32.0-36.0); MEAN PLATELET VOLUME 8.8 fL (7.4-11.4); MONOCYTES # (AUTO) 0.6 10^3/uL (0.0-1.0); MONOCYTES % (AUTO) 7.7 %; NEUTROPHILS # (AUTO) 6.2 10^3/uL (1.5-6.6); NEUTROPHILS % (AUTO) 75.4 %; PLT - PLATELET COUNT 230 10^3/uL (130-450); RED BLOOD COUNT 4.38 10^6/uL (4.70-6.10); RED CELL DISTRIBUTION WIDTH 12.1 % (12.0-15.0); WHITE BLOOD COUNT 8.2 x10^3/uL (4.8-10.8)
--- NOTE | 2021-04-25 22:49 | ED Physician Documentation ---
PD HPI CHEST PAIN - Stated complaint Stated Complaint: CHEST PRESSURE - Chief complaint Chief Complaint: Cardiac - History obtained from History obtained from: Patient - History of Present Illness Timing - onset: Today (this morning) Timing - onset during: Sleep Timing - details: Gradual onset Pain level now: 2 Quality: Pressure Location: Upper back Radiation: Other (anterior chest) Improved by: Nothing Worsened by: Position (worse lying on either side) Associated symptoms: No: Shortness of air, Diaphoresis, Nausea, Vomiting, Feeling faint / dizzy, General Weakness, Palpitations, Cough Recently seen: Not recently seen - Additional information Additional information: patient says he woke this morning with ache in my neck, like a pressure between my shoulder blades but inside (per patient). The pain eventually radiated through to his anterior chest and he presents with ongoing, albeit mild, discomfort in these areas. No exacerbating factors except positional component as noted. Denies h/o similar symptoms. His medical history is Review of Systems Constitutional: reports: Reviewed and negative Cardiac: reports: Chest pain / pressure, Palpitations. denies: Pedal edema, Calf pain Respiratory: reports: Reviewed and negative GI: reports: Reviewed and negative : denies: Dysuria, Frequency Musculoskeletal: denies: Back pain PD PAST MEDICAL HISTORY - Past Medical History Past Medical History: Yes Cardiovascular: High cholesterol Respiratory: Sleep apnea Neuro: None Endocrine/Autoimmune: None, Other GI: Diverticulitis, Other : Other HEENT: Chronic vision loss Psych: Depression Musculoskeletal: Chronic back pain Derm: None - Past Surgical History Past Surgical History: No - Present Medications Home Medications: Ambulatory Orders Medication Instructions Recorded Confirmed Citalopram [CeleXA] 20 mg PO DAILY 04/25/21 04/25/21 - Allergies Allergies/Adverse Reactions: Allergies Allergy/AdvReac Type Severity Reaction Status Date / Time No Known Drug Allergies Allergy Verified 04/25/21 22:18 - Social History Does the pt smoke?: No Smoking Status: Never smoker Does the pt drink ETOH?: No Does the pt have substance abuse?: No - Immunizations Immunizations are current?: Yes PD ED PE NORMAL - Vitals Vital signs reviewed: Yes - General General: Alert and oriented X 3, No acute distress, Well developed/nourished - HEENT HEENT: Moist mucous membranes - Neck Neck: Supple, no meningeal sign - Cardiac Cardiac: RRR, No murmur, No gallop, No rub, Strong equal pulses - Respiratory Respiratory: No respiratory distress, Clear bilaterally - Abdomen Abdomen: Soft, Non tender - Extremities Extremities: No edema - Neuro Neuro: Alert and oriented X 3 Results - Vitals Vitals: Oxygen O2 Source Room air - EKG (time done) No standard instances Rate: Rate (enter#) (101) Rhythm: Sinus tachycardia [place]: LAD Intervals: Normal UT QRS: Poor R wave progression Ischemia: Normal ST segments, Q waves (III, aVF) - Labs Labs: Laboratory Tests 04/25/21 04/25/21 04/25/21 22:27 22:27 22:27 WBC 8.2 RBC 4.38 L Hgb 13.5 L Hct 40.3 L MCV 92.0 MCH 30.8 MCHC 33.5 RDW 12.1 Plt Count 230 MPV 8.8 Neut # (Auto) 6.2 Lymph # (Auto) 0.9 L Kinney # (Auto) 0.6 Eos # (Auto) 0.4 Baso # (Auto) 0.0 Absolute Nucleated RBC 0.00 Nucleated RBC % 0.0 Sodium 137 Potassium 3.7 Chloride 101 Carbon Dioxide 26 Anion Gap 10.0 BUN 13 Creatinine 1.0 Estimated GFR (MDRD) 73 L Glucose 234 H Calcium 9.5 Total Bilirubin 0.9 AST 21 ALT 25 Alkaline Phosphatase 96 Troponin I High Sens 9.1 Total Protein 7.0 Albumin 3.9 Globulin 3.1 Albumin/Globulin Ratio 1.3 Lipase 56 H - Rads (name of study) chest xray Radiology: Prelim report reviewed, See rad report PD MEDICAL DECISION MAKING - ED course Complexity details: reviewed results, re-evaluated patient, considered differential, d/w patient ED course: reassuring test results including CXR, EKG (no acute findings),and blood tests including high-sensitivity troponin. His symptoms improved significantly during ED stay without specific intervention although he asked for something to help with residual mild discomfort and is given IV toradol. Results reviewed and I advised him that negative test results do not rule out potential serious/dangerous pathology and thus he needs to pursue outpatient follow up starting with his primary care provider, as further tests might be warranted. He is also instructed to return to the ED immediately if worse in any way. we also discussed his hyperglycemia, which he couldnt decide if this was a known problem for him or not. I advised him to discuss it with his doctor Departure - Departure Disposition: 01 Home, Self Care Clinical Impression: Hyperglycemia Chest pain Qualifiers: Chest pain type: unspecified Qualified Code(s): R07.9 - Chest pain, unspecified Condition: Good Instructions: ED Chest Pain Atypical Unkn Cause, ED Hyperglycemia New Susp Diabetes Follow-Up: Adela Soto MD [Primary Care Provider] - Discharge Date/Time: 04/26/21 01:25
[2021-04-25 22:56] LABS: ALBUMIN 3.9 g/dL (3.2-5.5); ALBUMIN/GLOBULIN RATIO 1.3 (1.0-2.2); BILIRUBIN,TOTAL 0.9 mg/dL (0.2-1.0); CALCIUM 9.5 mg/dL (8.5-10.3); POTASSIUM 3.7 mmol/L (3.5-5.0)
[2021-04-26] MEDS ORDERED: KETOROLAC 30 MG/ML VIAL IVP STA (01:15)
[2021-04-26 01:28] VITALS: BP 155/88
--- NOTE | 2021-04-26 07:57 | XRAY Report ---
PROCEDURE: Chest 2 View X-Ray INDICATIONS: chest pain TECHNIQUE: 2 view(s) of the chest. COMPARISON: None. FINDINGS: Surgical changes and devices: None. Lungs and pleura: No pleural effusions or pneumothorax. Lungs are clear. Mediastinum: Mediastinal contours are normal. Heart size is normal. Bones and chest wall: No suspicious bony abnormalities. Soft tissues appear unremarkable. IMPRESSION: No acute cardiopulmonary disease process. Reviewed by: Nicolette Benavides MD, PhD on 04/26/2021 7:56 AM PDT Approved by: Nicolette Benavides MD, PhD on 04/26/2021 7:56 AM PDT Station ID: [id number]
== END 2021-04-26 01:25 | disposition home or self-care (01) ==
LOC: ED 22:07
DX: R07.9 Chest pain, unspecified (principal); R73.9 Hyperglycemia, unspecified
CPT/HCPCS: 36415; 80053; 83690; 84484; 85025; 93005; 96374; 99284

== ENCOUNTER 2021-06-28 13:41 | Outpatient (CLI) | payer MEDICARE ==
[2021-06-28 13:57] LABS: BASOPHILS % (AUTO) 0.8 %; EOSINOPHILS # (AUTO) 0.3 10^3/uL (0.0-0.7); EOSINOPHILS % (AUTO) 8.3 %; HCT - HEMATOCRIT 38.8 % (42.0-52.0); LYMPHOCYTES # (AUTO) 0.7 10^3/uL (1.5-3.5); LYMPHOCYTES % (AUTO) 19.8 %; MEAN CORPUSCULAR HEMOGLOBIN 31.3 pg (27.0-31.0); MEAN CORPUSCULAR HGB CONC 33.5 g/dL (32.0-36.0); MEAN CORPUSCULAR VOLUME 93.5 fL (80.0-94.0); MEAN PLATELET VOLUME 8.8 fL (7.4-11.4); MONOCYTES # (AUTO) 0.5 10^3/uL (0.0-1.0); MONOCYTES % (AUTO) 12.3 %; NEUTROPHILS # (AUTO) 2.2 10^3/uL (1.5-6.6); PLT - PLATELET COUNT 238 10^3/uL (130-450); RED BLOOD COUNT 4.15 10^6/uL (4.70-6.10); RED CELL DISTRIBUTION WIDTH 11.9 % (12.0-15.0); WHITE BLOOD COUNT 3.7 x10^3/uL (4.8-10.8)
[2021-06-28 14:16] LABS: ALBUMIN 3.6 g/dL (3.2-5.5); ALBUMIN/GLOBULIN RATIO 1.1 (1.0-2.2); BILIRUBIN,TOTAL 0.5 mg/dL (0.2-1.0); CALCIUM 9.4 mg/dL (8.5-10.3); CREATININE 0.8 mg/dL (0.6-1.2); POTASSIUM 4.1 mmol/L (3.5-5.0)
== END 2021-06-28 13:42 | disposition home or self-care (01) ==
LOC: LAB 13:41
DX: C61 Malignant neoplasm of prostate (principal); C79.51 Secondary malignant neoplasm of bone; C77.2 Secondary and unspecified malignant neoplasm of intra-abdominal lymph nodes; C77.5 Secondary and unspecified malignant neoplasm of intrapelvic lymph nodes
CPT/HCPCS: 36415; 80053; 85025

== ENCOUNTER 2021-09-14 20:39 | Outpatient (CLI) | payer MEDICARE, OTHER | END 2021-09-14 20:40 | disposition short-term general hospital (02) | LOC: EMS 20:39 | DX: R40.4 Transient alteration of awareness (principal); R53.1 Weakness | CPT/HCPCS: A0425; A0427 ==

== ENCOUNTER 2022-01-07 14:01 | Emergency (ER) | payer MEDICARE, OTHER ==
[2022-01-07] MEDS ORDERED: HYDROmorphone 1 MG/ML CARPUJECT IM STA (16:04)
--- NOTE | 2022-01-07 16:26 | ED Physician Documentation ---
History of Present Illness - Stated complaint Stated Complaint: RT LEG PX - Chief complaint Chief Complaint: Ext Problem - History obtained from History obtained from: Patient - History of Present Illness Pain level max: 10 Pain level now: 5 - Additonal information Additional information: Patient is a 76-year-old male with stage IV metastatic prostate cancer who presents with worsening pain to the right hip. Has known metastases to the site. Worse with walking, better with rest. He has a walker but is not using it. He took oxycodone at home without relief. No fevers. No chills. No falls. No trauma. Review of Systems Constitutional: denies: Fever, Chills Cardiac: denies: Chest pain / pressure, Palpitations Respiratory: denies: Cough GI: denies: Vomiting, Diarrhea Skin: denies: Rash Musculoskeletal: denies: Neck pain, Back pain Neurologic: denies: Headache PD PAST MEDICAL HISTORY - Past Medical History Cardiovascular: High cholesterol Respiratory: Sleep apnea Neuro: None Endocrine/Autoimmune: None, Other GI: Diverticulitis, Other : Other HEENT: Chronic vision loss Psych: Depression Musculoskeletal: Chronic back pain Derm: None - Past Surgical History Past Surgical History: No - Present Medications Home Medications: Ambulatory Orders Medication Instructions Recorded Confirmed Citalopram [CeleXA] 20 mg PO DAILY 04/25/21 04/25/21 HYDROmorphone [Dilaudid] 2 mg PO Q4H PRN #20 tablet 01/07/22 - Allergies Allergies/Adverse Reactions: Allergies Allergy/AdvReac Type Severity Reaction Status Date / Time No Known Drug Allergies Allergy Verified 01/07/22 14:18 - Social History Does the pt smoke?: No Smoking Status: Never smoker Does the pt drink ETOH?: No Does the pt have substance abuse?: No - Immunizations Immunizations are current?: Yes PD ED PE NORMAL - Vitals Vital signs reviewed: Yes - General General: Alert and oriented X 3, No acute distress, Well developed/nourished - HEENT HEENT: PERRL, Moist mucous membranes - Neck Neck: Supple, no meningeal sign - Cardiac Cardiac: RRR, Strong equal pulses - Respiratory Respiratory: No respiratory distress, Clear bilaterally - Abdomen Abdomen: Soft, Non tender, Non distended - Derm Derm: Warm and dry - Extremities Extremities: No calf tenderness / cord (R hip - No pain with passive range of motion of the hip. No tenderness over the greater trochanter. Most of his pain is when standing and ambulating. Neurovascular intact.), Other - Neuro Neuro: Alert and oriented X 3 - Psych Psych: Normal mood, Normal affect Results - Vitals Vitals: Vital Signs - 24 hr 01/07/22 01/07/22 01/07/22 14:08 19:01 19:02 Temperature 36.3 C L Heart Rate 134 H 78 78 Respiratory 14 18 18 Rate Blood Pressure 94/73 138/73 H 138/73 H O2 Saturation 100 99 99 Oxygen O2 Source Room air - Rads (name of study) R hip xray Radiology: Final report received, EMP read contemporaneously, See rad report r hip CT Radiology: Final report received, EMP read contemporaneously, See rad report PD MEDICAL DECISION MAKING - ED course Complexity details: reviewed results, re-evaluated patient, considered differential, d/w patient, d/w family ED course: 76-year-old male with stage IV metastatic prostate cancer presents with right hip pain. He states that he does not recall any falls or injury. X-ray does not show any acute abnormalities. The CT scan does show a lucency in the right acetabulum, new since 2018. Could be related to severe osteopenia. Recommend MRI. MRI is not available here tonight. If the patient would like to try different pain medication at home and will ambulate only with a walker. Patient will follow up with his oncologist on as scheduled. Patient will return if he worsens. Otherwise no acute findings on CT scan to explain his pain. Patient and family counseled regarding signs and symptoms for which I believe and urgent re-evaluation would be necessary. Patient with good understanding of and agreement to plan and is comfortable going home at this time This document was made in part using voice recognition software. While efforts are made to proofread this document, sound alike and grammatical errors may occur. I am prescribing a short course of short-acting opioid pain medication for this patient. 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 I have discussed that the opioids are for short term therapy only, and will not be refilled from the ED. Impression: 1. No fracture or dislocation. 2. There is lucency in the right acetabulum which is new since . The findings probably related to severe osteopenia. Prostate cancer bone metastasis is commonly sclerotic. An MRI is, however, recommended in this patient with right hip pain to evaluate possible atypical metastatic disease from prostate cancer and/or tendinous ligamentous injuries. 3. Sclerotic focus in the right femoral head is most likely a bone island. 4. Please see the abdomen report for other incidental findings. Departure - Departure Disposition: 01 Home, Self Care Clinical Impression: Hip pain, Prostate cancer metastatic to bone Condition: Good Instructions: ED Acute Pain [facility] Follow-Up: Adela Soto MD [Primary Care Provider] - Within 1 week Prescriptions: HYDROmorphone [Dilaudid] 2 mg PO Q4H PRN #20 tablet PRN Reason: hip pain Comments: Your prescriptions were sent to [facility] in [place]. Please follow-up with your doctor for further care. Radiology does recommend an MRI of the hip. This is not available tonight, but can be ordered by your doctor. Please use a walker to help you get around at home as well. I am prescribing a short course of narcotic pain medication for you. These are potentially dangerous and addictive medications that should be used carefully. These medications may constipate you. Take an jyli-wxn-anowcub stool softener (docusate) twice daily with plenty of water while taking these medications. If you go 24 hours without a bowel movement, take ujjh-bna-xahydgc miralax, per package instructions. Do not drink or drive while taking these medications. If you received narcotic or sedating medications while in the emergency department, do not drive for 24 hours. Store this medication in a safe, secure place and out of reach of children. It is a violation of federal law to give or sell this medication to another person or to use in a manner other than prescribed. The ED will not refill narcotic prescriptions, including prescriptions lost or stolen. To dispose of unwanted medications: 1. [facility] [address] in [place] has a medication drop box. They accept prescription medications (in pill form) Thursday through Thursday 9:00 a.m. to 5:00 p.m. 2. [facility] [employer] accepts prescription medications (in pill form only) for disposal year round. Call for more information. 3. Contact the [facility] for the next [facility] sponsored prescription drug collection event. , [phone], or [phone]; Impression: 1. No fracture or dislocation. 2. There is lucency in the right acetabulum which is new since . The findings probably related to severe osteopenia. Prostate cancer bone metastasis is commonly sclerotic. An MRI is, however, recommended in this patient with right hip pain to evaluate possible atypical metastatic disease from prostate cancer and/or tendinous ligamentous injuries. 3. Sclerotic focus in the right femoral head is most likely a bone island. 4. Please see the abdomen report for other incidental findings. Discharge Date/Time: 01/07/22 19:05
--- NOTE | 2022-01-07 16:38 | XRAY Report ---
PROCEDURE: Hip w/Pelvis 2-3V RT INDICATIONS: R hip pain, stage IV prostate cancer, mets TECHNIQUE: AP pelvis with lateral view of the right hip. COMPARISON: CT abdomen/pelvis 07/19/2019. FINDINGS: Bones: No acute fractures or dislocations. Pelvic ring appears intact. No suspicious bony lesions. Soft tissues: The visualized bowel gas pattern is normal. No suspicious soft tissue calcifications. IMPRESSION: No acute osseous abnormality. No definite osteoblastic metastasis is seen radiographical ly. Consider follow-up CT or nuclear medicine bone scan if there is suspicion for osseous metastatic disease. Reviewed by: Dharmesh Blackmon MD on 01/07/2022 4:36 PM PDT Approved by: Dharmesh Blackmon MD on 01/07/2022 4:36 PM PDT Station ID: [id number]
--- NOTE | 2022-01-07 18:34 | CT Report ---
PROCEDURE: LOWER EXTREMITY WO - RT INDICATIONS: Right hip pain, stage IV prostate ca with mets TECHNIQUE: Noncontrast 3-mm axial sections acquired from the distal tibial shaft to the talar dome, with coronal and sagittal reformats. For radiation dose reduction, the following was used: automated exposure c ontrol, adjustment of mA and/or kV according to patient size. COMPARISON: CT abdomen and pelvis, 07/19/2019. X-ray right hip with pelvis, 01/07/2022. FINDINGS: Image quality: Excellent. Bones: Fracture or dislocation. There is a large area of lucency in the right acetabulum. There is a small sclerotic focus in the right humeral head unchanged, probably a bone island. 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 Soft tissues: No soft tissue mass or hematoma. Prostate is absent. There are colonic diverticula. Th e bladder wall is mildly thickened. Mild fat-containing right inguinal hernia is noted. Impression: 1. No fracture or dislocation. 2. There is lucency in the right acetabulum which is new since . The findings probably relat ed to severe osteopenia. Prostate cancer bone metastasis is commonly sclerotic. An MRI is, however, r ecommended in this patient with right hip pain to evaluate possible atypical metastatic disease from prostate cancer and/or tendinous ligamentous injuries. 3. Sclerotic focus in the right femoral head is most likely a bone island. 4. Please see the abdomen report for other incidental findings. Reviewed by: Angela Ahn MD on 01/07/2022 5:33 PM AKDT Approved by: Angela Ahn MD on 01/07/2022 5:33 PM AKDT Station ID: [id number]
[2022-01-07] MEDS ORDERED: HYDROmorphone 2 MG TABLET PO STA (18:45)
[2022-01-07 19:03] VITALS: BP 138/73
== END 2022-01-07 19:05 | disposition home or self-care (01) ==
LOC: ED 14:01
DX: M25.551 Pain in right hip (principal); C61 Malignant neoplasm of prostate; C79.51 Secondary malignant neoplasm of bone
CPT/HCPCS: 73502; 73700; 99284; A9270; J1170

== ENCOUNTER 2022-01-19 20:46 | Outpatient (CLI) | payer MEDICARE, OTHER | END 2022-01-19 20:47 | disposition short-term general hospital (02) | LOC: EMS 20:46 | DX: R41.0 Disorientation, unspecified (principal); R53.1 Weakness; R50.9 Fever, unspecified | CPT/HCPCS: A0425; A0427 ==

== ENCOUNTER 2022-11-05 14:51 | Outpatient (CLI) | payer MEDICARE, OTHER ==
[2022-11-05 19:36] LABS: BASOPHILS % (AUTO) 0.5 %; EOSINOPHILS # (AUTO) 0.1 10^3/uL (0.0-0.7); EOSINOPHILS % (AUTO) 2.5 %; HCT - HEMATOCRIT 33.2 % (42.0-52.0); HGB - HEMOGLOBIN 10.8 g/dL (14.0-18.0); LYMPHOCYTES # (AUTO) 0.4 10^3/uL (1.5-3.5); LYMPHOCYTES % (AUTO) 9.3 %; MEAN CORPUSCULAR HEMOGLOBIN 33.2 pg (27.0-31.0); MEAN CORPUSCULAR HGB CONC 32.5 g/dL (32.0-36.0); MEAN CORPUSCULAR VOLUME 102.2 fL (80.0-94.0); MEAN PLATELET VOLUME 9.2 fL (7.4-11.4); MONOCYTES # (AUTO) 0.4 10^3/uL (0.0-1.0); MONOCYTES % (AUTO) 9.3 %; NEUTROPHILS # (AUTO) 3.1 10^3/uL (1.5-6.6); NEUTROPHILS % (AUTO) 77.9 %; PLT - PLATELET COUNT 126 10^3/uL (130-450); RED BLOOD COUNT 3.25 10^6/uL (4.70-6.10); RED CELL DISTRIBUTION WIDTH 13.5 % (12.0-15.0)
[2022-11-05 19:46] LABS: ALBUMIN 3.5 g/dL (3.2-5.5); ALBUMIN/GLOBULIN RATIO 1.3 (1.0-2.2); BILIRUBIN,TOTAL 0.6 mg/dL (0.2-1.0); CALCIUM 8.8 mg/dL (8.5-10.3); CREATININE 0.8 mg/dL (0.6-1.2); TOTAL PROTEIN 6.2 g/dL (6.7-8.2)
== END 2022-11-05 14:52 | disposition home or self-care (01) ==
LOC: LAB.S 14:51
PROVIDERS: ATTEND Specialist
DX: C79.51 Secondary malignant neoplasm of bone (principal)
CPT/HCPCS: 36415; 80053; 85025

== ENCOUNTER 2023-03-16 13:49 | Outpatient (CLI) | payer MEDICARE, OTHER ==
[2023-03-16 20:18] LABS: BASOPHILS % (AUTO) 0.3 %; HCT - HEMATOCRIT 27.8 % (42.0-52.0); HGB - HEMOGLOBIN 8.1 g/dL (14.0-18.0); LYMPHOCYTES % (AUTO) 6.9 %; MEAN CORPUSCULAR HEMOGLOBIN 29.2 pg (27.0-31.0); MEAN CORPUSCULAR HGB CONC 29.1 g/dL (32.0-36.0); MEAN CORPUSCULAR VOLUME 100.4 fL (80.0-94.0); MEAN PLATELET VOLUME 9.7 fL (7.4-11.4); MONOCYTES % (AUTO) 11.7 %; NEUTROPHILS % (AUTO) 70.7 %; PLT - PLATELET COUNT 218 10^3/uL (130-450); RED BLOOD COUNT 2.77 10^6/uL (4.70-6.10); RED CELL DISTRIBUTION WIDTH 14.9 % (12.0-15.0); WHITE BLOOD COUNT 6.4 x10^3/uL (4.8-10.8)
[2023-03-16 20:28] LABS: PSA TOTAL 35.924 ng/mL (0.000-2.000)
[2023-03-16 20:55] LABS: ALBUMIN 2.8 g/dL (3.2-5.5); ALBUMIN/GLOBULIN RATIO 0.7 (1.0-2.2); BILIRUBIN,TOTAL 0.6 mg/dL (0.2-1.0); CALCIUM 8.4 mg/dL (8.5-10.3); CREATININE 0.9 mg/dL (0.6-1.2); POTASSIUM 3.5 mmol/L (3.5-5.0); TOTAL PROTEIN 6.8 g/dL (6.7-8.2)
[2023-03-16 20:56] LABS: SLIDE REVIEW? Indicated
[2023-03-16 20:57] LABS: ABNORMAL LYMPHS % (MANUAL) 0 %; BAND NEUTROPHILS % (MANUAL) 0 %
[2023-03-16 21:17] LABS: PSA FREE 26.49 ng/mL (0.16-2.81)
[2023-03-17] LABS: DIFFERENTIAL COMMENT MANUAL DIFFERENTIAL; EOSINOPHILS # (MANUAL) 0.2 10^3/uL (0-0.7); LYMPHOCYTES # (MANUAL) 0.7 10^3/uL (1.5-3.5); LYMPHOCYTES % (MANUAL) 11 %; METAMYELOCYTES % (MANUAL) 1 %; MONOCYTES # (MANUAL) 0.3 10^3/uL (0.0-1.0); NEUTROPHILS # (MANUAL) 5.1 10^3/uL (1.5-6.6); PLATELET ESTIMATE, MANUAL NORMAL (130-450,000) (NORMAL); PLATELET MORPHOLOGY NORMAL APPEARANCE (NORMAL); PROMYELOCYTES % (MANUAL) 1 %; RBC MORPHOLOGY (MULTIPLE) NORMAL APPEARANCE (NORMAL); WBC MORPHOLOGY (MULTIPLE) NORMAL APPEARANCE (NORMAL)
[2023-03-18 18:08] LABS: FREE TESTOSTERONE(DIRECT) <0.2 pg/mL (6.6-18.1); TESTOSTERONE <3 ng/dL (264-916)
== END 2023-03-16 13:50 | disposition home or self-care (01) ==
LOC: LAB.S 13:49
PROVIDERS: ATTEND Physician Assistant
DX: C61 Malignant neoplasm of prostate (principal); C79.51 Secondary malignant neoplasm of bone
CPT/HCPCS: 36415; 80053; 84153; 84154; 84402; 84403; 85025

== ENCOUNTER 2023-04-20 13:09 | Outpatient (CLI) | payer MEDICARE, OTHER ==
[2023-04-20 14:29] LABS: BASOPHILS % (AUTO) 0.3 %; EOSINOPHILS % (AUTO) 1.6 %; HGB - HEMOGLOBIN 7.1 g/dL (14.0-18.0); LYMPHOCYTES % (AUTO) 7.7 %; MEAN CORPUSCULAR HEMOGLOBIN 27.5 pg (27.0-31.0); MEAN CORPUSCULAR HGB CONC 29.6 g/dL (32.0-36.0); MONOCYTES % (AUTO) 8.8 %; NEUTROPHILS % (AUTO) 72.3 %; PLT - PLATELET COUNT 219 10^3/uL (130-450); RED BLOOD COUNT 2.58 10^6/uL (4.70-6.10); RED CELL DISTRIBUTION WIDTH 17.2 % (12.0-15.0); WHITE BLOOD COUNT 6.3 x10^3/uL (4.8-10.8)
[2023-04-20 14:31] LABS: SLIDE REVIEW? Indicated
[2023-04-20 14:48] LABS: ABNORMAL LYMPHS % (MANUAL) 0 %
[2023-04-20 14:50] LABS: BAND NEUTROPHILS % (MANUAL) 4 %; EOSINOPHILS # (MANUAL) 0.1 10^3/uL (0-0.7); LYMPHOCYTES % (MANUAL) 16 %; MONOCYTES # (MANUAL) 0.4 10^3/uL (0.0-1.0); NEUTROPHILS # (MANUAL) 4.8 10^3/uL (1.5-6.6)
[2023-04-20 14:51] LABS: DIFFERENTIAL COMMENT MANUAL DIFFERENTIAL; PLATELET ESTIMATE, MANUAL NORMAL (130-450,000) (NORMAL); PLATELET MORPHOLOGY NORMAL APPEARANCE (NORMAL)
== END 2023-04-20 13:10 | disposition home or self-care (01) ==
LOC: LAB.S 13:09
PROVIDERS: ATTEND Internal Medicine Hematology & Oncology
DX: C61 Malignant neoplasm of prostate (principal); C79.51 Secondary malignant neoplasm of bone
CPT/HCPCS: 36415; 85025

== ENCOUNTER 2023-04-29 13:10 | Outpatient (CLI) | payer MEDICARE, OTHER ==
[2023-04-29 19:53] LABS: BASOPHILS % (AUTO) 0.2 %; EOSINOPHILS % (AUTO) 0.5 %; HCT - HEMATOCRIT 23.4 % (42.0-52.0); LYMPHOCYTES # (AUTO) 0.2 10^3/uL (1.5-3.5); LYMPHOCYTES % (AUTO) 3.7 %; MEAN CORPUSCULAR HEMOGLOBIN 27.2 pg (27.0-31.0); MEAN CORPUSCULAR HGB CONC 29.9 g/dL (32.0-36.0); MEAN CORPUSCULAR VOLUME 91.1 fL (80.0-94.0); MEAN PLATELET VOLUME 10.9 fL (7.4-11.4); MONOCYTES # (AUTO) 0.4 10^3/uL (0.0-1.0); MONOCYTES % (AUTO) 5.5 %; NEUTROPHILS # (AUTO) 5.7 10^3/uL (1.5-6.6); NEUTROPHILS % (AUTO) 87.4 %; PLT - PLATELET COUNT 167 10^3/uL (130-450); RED BLOOD COUNT 2.57 10^6/uL (4.70-6.10); RED CELL DISTRIBUTION WIDTH 16.6 % (12.0-15.0); WHITE BLOOD COUNT 6.6 x10^3/uL (4.8-10.8)
== END 2023-04-29 13:11 | disposition home or self-care (01) ==
LOC: LAB.S 13:10
PROVIDERS: ATTEND Internal Medicine Hematology & Oncology
DX: C61 Malignant neoplasm of prostate (principal); C79.51 Secondary malignant neoplasm of bone
CPT/HCPCS: 36415; 85025

== ENCOUNTER 2023-05-04 19:31 | Outpatient (CLI) | payer MEDICARE, OTHER | END 2023-05-04 23:59 | disposition left against medical advice (07) | LOC: EMS 19:31 | DX: R06.89 Other abnormalities of breathing (principal); R53.1 Weakness; R63.8 Other symptoms and signs concerning food and fluid intake; R00.0 Tachycardia, unspecified ==

== ENCOUNTER 2023-05-08 13:46 | Outpatient (CLI) | payer MEDICARE, OTHER ==
[2023-05-08 20:02] LABS: BASOPHILS % (AUTO) 0.3 %; HCT - HEMATOCRIT 28.5 % (42.0-52.0); HGB - HEMOGLOBIN 8.2 g/dL (14.0-18.0); LYMPHOCYTES % (AUTO) 8.9 %; MEAN CORPUSCULAR HEMOGLOBIN 26.9 pg (27.0-31.0); MEAN CORPUSCULAR HGB CONC 28.8 g/dL (32.0-36.0); MEAN CORPUSCULAR VOLUME 93.4 fL (80.0-94.0); MEAN PLATELET VOLUME 10.5 fL (7.4-11.4); MONOCYTES % (AUTO) 8.6 %; NEUTROPHILS % (AUTO) 73.2 %; PLT - PLATELET COUNT 196 10^3/uL (130-450); RED BLOOD COUNT 3.05 10^6/uL (4.70-6.10); RED CELL DISTRIBUTION WIDTH 17.2 % (12.0-15.0); WHITE BLOOD COUNT 6.4 x10^3/uL (4.8-10.8)
[2023-05-08 20:07] LABS: ALBUMIN 2.9 g/dL (3.2-5.5); ALBUMIN/GLOBULIN RATIO 0.9 (1.0-2.2); BILIRUBIN,TOTAL 0.5 mg/dL (0.2-1.0); CALCIUM 8.7 mg/dL (8.5-10.3); CREATININE 0.7 mg/dL (0.6-1.3); TOTAL PROTEIN 6.3 g/dL (6.4-8.9)
[2023-05-08 20:18] LABS: ABNORMAL LYMPHS % (MANUAL) 0 %; BAND NEUTROPHILS % (MANUAL) 0 %
[2023-05-08 20:51] LABS: DIFFERENTIAL COMMENT MANUAL DIFFERENTIAL; EOSINOPHILS # (MANUAL) 0.1 10^3/uL (0-0.7); LYMPHOCYTES # (MANUAL) 0.6 10^3/uL (1.5-3.5); LYMPHOCYTES % (MANUAL) 9 %; METAMYELOCYTES % (MANUAL) 1 %; MONOCYTES # (MANUAL) 0.4 10^3/uL (0.0-1.0); MYELOCYTES % (MANUAL) 2 %; NEUTROPHILS # (MANUAL) 5.1 10^3/uL (1.5-6.6); PLATELET ESTIMATE, MANUAL NORMAL (130-450,000) (NORMAL); PLATELET MORPHOLOGY NORMAL APPEARANCE (NORMAL); RBC MORPHOLOGY (MULTIPLE) 1+ ANISOCYTOSIS (NORMAL)
[2023-05-12 19:07] LABS: FREE TESTOSTERONE(DIRECT) <0.2 pg/mL (6.6-18.1); TESTOSTERONE <3 ng/dL (264-916)
== END 2023-05-08 13:47 | disposition home or self-care (01) ==
LOC: LAB.S 13:46
PROVIDERS: ATTEND Physician Assistant
DX: C61 Malignant neoplasm of prostate (principal); C79.51 Secondary malignant neoplasm of bone
CPT/HCPCS: 36415; 80053; 84153; 84154; 84402; 84403; 85025